=== PATIENT | female | born 1970 | race Caucasian/White ===

== ENCOUNTER 2022-10-28 19:05 | Emergency (ER) | payer BC, MEDICAID ==
[~2022-10-28] VITALS: Ht 167.6 cm; Wt 62.7 kg
[~2022-10-28 19:05] MED LIST: DICL100G15 TOP
[2022-10-28 19:12] VITALS: BP 179/92
[2022-10-28 19:39] LABS: COLOR,URINE YELLOW (Yellow); GLUCOSE, URINE NEGATIVE (Neg); KETONES,URINE NEGATIVE (Neg); LEUKOCYTE ESTERASE ,URINE NEGATIVE (Neg); NITRITES, URINE POSITIVE (Neg); OCCULT BLOOD,URINE TRACE-INTACT (Neg); PROTEIN,URINE NEGATIVE (Neg); UROBILINOGEN,URINE 0.2 E.U/dL (0.2-1.0)
[2022-10-28 19:53] LABS: UA COLLECTION TYPE CLN CATCH MIDSTREAM
[2022-10-28 19:54] LABS: CLARITY,URINE SLIGHTLY CLOUDY (Clear)
[2022-10-28 19:55] LABS: BACTERIA,URINE 3+ /HPF (Neg); MUCUS STRANDS FEW /LPF (Neg); RBC,URINE 0-2 /HPF (0-2); SQUAMOUS EPITHELIAL CELL,UR FEW /LPF (FEW); WBC,URINE 0-4 /HPF (0-4)
[2022-10-28] MEDS ORDERED: orphenadrine citrate 60mg/2ml inj. IM ONE (20:00)
[2022-10-28] MEDS ORDERED: ketorolac trometh inj. 60 MG/2 ML VIAL IM ONE (20:00)
[2022-10-28] MEDS ORDERED: CYCL-1 PO (20:03)
[2022-10-28] MEDS ORDERED: nitrofuran monohydrate/nitrofuran macrocrysal 100 MG (MacroBID) capsule PO ONE (20:05)
[2022-10-28] MEDS ORDERED: NITR100C6 PO (20:05)
== END 2022-10-28 20:31 | disposition home or self-care (01) ==
LOC: ER 19:07
DX: M62.830 Muscle spasm of back (principal); M54.50 Low back pain, unspecified; N39.0 Urinary tract infection, site not specified; Z88.1 Allergy status to other antibiotic agents; Z88.5 Allergy status to narcotic agent; Z79.899 Other long term (current) drug therapy
CPT/HCPCS: 81001; 87088; 96372; 99284; J1885; J2360; 87077; 87186

== ENCOUNTER 2022-12-25 03:28 | Emergency (ER) | payer BC ==
[~2022-12-25] VITALS: Ht 167.6 cm; Wt 59.2 kg
[~2022-12-25 03:28] MED LIST changes: +CYCL-1 PO; +NITR100C6 PO
[2022-12-25 04:14] LABS: BASOPHILS # (AUTO) 0.1 X10'3 (0-0.2); BASOPHILS % (AUTO) 1.2 % (0-1); EOSINOPHILS # (AUTO) 0.4 X10'3 (0-0.9); EOSINOPHILS % (AUTO) 5.3 % (0-6); HEMATOCRIT 39.7 % (35.0-45.0); HEMOGLOBIN 13.3 g/dl (12.0-16.0); LYMPHOCYTES # (AUTO) 1.8 X10'3 (1.1-4.8); LYMPHOCYTES % (AUTO) 22.7 % (21-51); MEAN CORPUSCULAR HEMOGLOBIN 30.3 PG (27.0-31.0); MEAN CORPUSCULAR HGB CONC 33.4 g/dL (33.0-36.5); MEAN CORPUSCULAR VOLUME 90.8 FL (78-98); MEAN PLATELET VOLUME 8.7 FL (7.4-10.4); MONOCYTES # (AUTO) 0.5 X10'3 (0-0.9); MONOCYTES % (AUTO) 6.7 % (2-12); NEUTROPHILS % (AUTO) 64.1 % (42-75); PLATELET COUNT 267 X10'3 (140-440); RED BLOOD COUNT 4.38 X10'6 (4.20-5.60); RED CELL DISTRIBUTION WIDTH 14.6 % (11.5-14.5); WHITE BLOOD COUNT 7.8 X10'3 (4.5-11.0)
[2022-12-25 04:26] LABS: ALANINE AMINOTRANSFERASE 24 U/L (12-78); ALBUMIN 3.3 G/DL (3.4-5.0); ALBUMIN/GLOBULIN RATIO 1.1 (1.1-1.5); ALKALINE PHOSPHATASE 86 IU/L (46-116); ANION GAP 5 (8-16); ASPARTATE AMINO TRANSFERASE 19 U/L (10-37); BILIRUBIN,TOTAL 0.3 MG/DL (0.1-1.0); BLOOD UREA NITROGEN 17 MG/DL (7-18); BUN/CREATININE RATIO 20.5 (10.0-20.0); CALCIUM 8.5 MG/DL (8.5-10.1); CHLORIDE 106 MMOL/L (99-107); CREATININE 0.83 MG/DL (0.40-0.90); GLUCOSE 111 MG/DL (70-104); LIPASE 120 U/L (73-393); POTASSIUM 3.7 MMOL/L (3.5-5.1); SODIUM 138 MMOL/L (135-145); TOTAL CARBON DIOXIDE 27.4 MMOL/L (24-32); TOTAL PROTEIN 6.3 G/DL (6.4-8.2); eGFR 72 ML/MIN
[2022-12-25] MEDS ORDERED: ketorolac trometh. 30mg/ml inj. IV ONE (04:40)
[2022-12-25] MEDS ORDERED: normal saline 1000ml 1,000 ML IV ONE (04:40)
--- NOTE | 2022-12-25 05:33 | NUR ---
PATIENT IN BED LYING ON RIGHT SIDE COVERS ON EYES CLOSED RR EVEN UN LABORED NO OBSERVABLES/S OF ACUTE PAIN AT THIS TIME
[2022-12-25 05:34] VITALS: BP 150/90
== END 2022-12-25 05:57 | disposition home or self-care (01) ==
LOC: ER 03:29
DX: R10.31 Right lower quadrant pain (principal); Z88.1 Allergy status to other antibiotic agents; Z88.5 Allergy status to narcotic agent
CPT/HCPCS: 36415; 74176; 80053; 83690; 84145; 85025; 96361; 96374; 99285; J1885; J7030